=== PATIENT | female | born 1955 | race Caucasian/White ===

== ENCOUNTER 2021-02-28 10:34 | Emergency (ER) | payer MEDICARE, OTHER ==
[~2021-02-28] VITALS: Ht 160 cm; Wt 73.5 kg
[2021-02-28] MEDS ORDERED: SODIUM CHLORIDE 0.9% 1,000 ML IVB ONE (11:00)
[2021-02-28 11:17] LABS: Basophils # (auto) 0 10 ^3/uL (0-0.2); Basophils % (auto) 0.4 % (0.0-2.0); Eosinophils # (auto) 0.1 10 ^3/uL (0-0.8); Eosinophils % (auto) 2.1 % (0.0-7.0); Hemoglobin 12.5 g/dL (12.2-16.2); Lymphocytes # (auto) 1.8 10 ^3/uL (0.4-5.4); Lymphocytes % (auto) 32.9 % (10.0-50.0); Mean Corpuscular Hemoglobin 32.1 pg (28.0-32.0); Mean Corpuscular Hgb Conc. 34.7 g/dL (32.0-36.0); Mean Corpuscular Volume 92.4 fL (80.0-100.0); Monocytes # (auto) 0.6 10 ^3/uL (0-1.3); Monocytes % (auto) 11.7 % (0.0-12.0); Neutrophils # (auto) 2.8 10 ^3/uL (1.6-8.6); Neutrophils % (auto) 52.9 % (37.0-80.0); Nucleated Red Blood Cells % 0.1 %; Platelet Count (auto) 215 10^3/uL (140-450); Red Cell Distribution Width 15.5 % (11.8-14.3); White Blood Cell 5.4 10^3/uL (4.4-10.8)
[2021-02-28 11:33] LABS: Albumin 4.1 g/dL (3.4-5.0); Calcium 9.9 mg/dL (8.5-10.1); Potassium 4.3 mmol/L (3.5-5.1)
[2021-02-28 11:36] LABS: Bilirubin, Total 0.4 mg/dL (0.2-1.0); Total Protein 7.8 g/dL (6.4-8.2)
[2021-02-28 14:18] VITALS: BP 113/81
== END 2021-02-28 14:19 | disposition home or self-care (01) ==
LOC: ER 10:34
DX: R19.7 Diarrhea, unspecified (principal); R11.2 Nausea with vomiting, unspecified; I10 Essential (primary) hypertension; Z90.710 Acquired absence of both cervix and uterus
CPT/HCPCS: 36415; 80053; 83690; 85025; 85049; 99283; J7030

== ENCOUNTER 2023-01-28 15:41 | Inpatient (IN) | payer MEDICARE ==
[~2023-01-28] VITALS: Ht 154.9 cm; Wt 70.9 kg
[2023-01-28] MEDS ORDERED: SODIUM CHLORIDE 0.9% 1,000 ML IVB ONE (16:15)
[2023-01-28 16:17] LABS: Basophils # (auto) 0 10 ^3/uL (0-0.2); Basophils % (auto) 0.3 % (0.0-2.0); Eosinophils # (auto) 0.1 10 ^3/uL (0-0.8); Eosinophils % (auto) 1.5 % (0.0-7.0); Hematocrit 31.9 % (36.0-46.0); Hemoglobin 10.8 g/dL (12.2-16.2); Lymphocytes # (auto) 0.9 10 ^3/uL (0.4-5.4); Lymphocytes % (auto) 16.1 % (10.0-50.0); Mean Corpuscular Hemoglobin 31.5 pg (28.0-32.0); Mean Corpuscular Hgb Conc. 33.9 g/dL (32.0-36.0); Monocytes # (auto) 0.5 10 ^3/uL (0-1.3); Monocytes % (auto) 9.3 % (0.0-12.0); Neutrophils # (auto) 4.2 10 ^3/uL (1.6-8.6); Neutrophils % (auto) 72.8 % (37.0-80.0); Red Blood Cells 3.42 10^6/uL (4.0-5.20); Red Cell Distribution Width 14.7 % (11.8-14.3); White Blood Cell 5.7 10^3/uL (4.4-10.8)
[2023-01-28 16:35] LABS: Albumin 3.3 g/dL (3.4-5.0); Calcium 7.7 mg/dL (8.5-10.1); Magnesium 1.9 mg/dL (1.6-2.6)
[2023-01-28 16:37] LABS: BUN/Creatinine Ratio 17.2 (10.0-20.0); Bilirubin, Total 0.2 mg/dL (0.2-1.0); Total Protein 5.4 g/dL (6.4-8.2)
[2023-01-28 16:51] LABS: INR 0.99 (0.9-1.15); Partial Thromboplastin Time 23.6 sec (24.6-33.4)
[2023-01-28] MEDS ORDERED: THIAMINE 100mg/ml INJ (200mg/2ml VIAL) IV ONE (17:45)
[2023-01-28] MEDS ORDERED: FOLIC ACID 1 MG in D5W 5% 50 ML INJ ONE (17:45)
[2023-01-28] MEDS ORDERED: D5W/SOD CHL 0.45%/KCL 40MEQ 1,000 ML IV ONE (17:45)
[2023-01-28 19:39] LABS: Urine Bacteria NONE SEEN /hpf (None Seen); Urine Blood Negative /uL (Negative); Urine Hyaline Cast FEW /lpf (0 - 2); Urine Specific Gravity 1.012 (1.001-1.035); Urine WBC 2 /hpf (0 - 5)
[2023-01-28] MEDS ORDERED: HYDROcodone-ACET 5/325MG TAB PO PRN (21:00)
[2023-01-28] MEDS ORDERED: NITROGLYCERIN 0.4 MG SL TAB SL PRN (21:00)
[2023-01-28] MEDS ORDERED: ACETAMINOPHEN 325 MG TAB PO PRN (21:00)
[2023-01-28] MEDS ORDERED: ONDANSETRON HCL 4 MG/2 ML VIAL IV PRN (21:00)
[2023-01-28] MEDS ORDERED: MORPHINE SULFATE INJ 2 MG/ml SYRG IV PRN (21:00)
[2023-01-28] MEDS: ATORVASTATIN 20 MG TAB PO SCH (22:11)
[2023-01-29 00:06] VITALS: BP 114/62
[2023-01-29 00:20] VITALS: BP 114/62
[2023-01-29] MEDS ORDERED: ACYC200C22 PO (00:32)
[2023-01-29] MEDS ORDERED: LISI20TA60 PO (00:32)
[2023-01-29] MEDS ORDERED: ESCI1TAB36 PO (00:40)
[2023-01-29] MEDS ORDERED: POM (00:40)
[2023-01-29 05:00] VITALS: BP 120/57
[2023-01-29 06:01] LABS: BUN/Creatinine Ratio 15.7 (10.0-20.0); Calcium 7.9 mg/dL (8.5-10.1); Potassium 4.2 mmol/L (3.5-5.1)
[2023-01-29 09:05] VITALS: BP 114/54
[2023-01-29] MEDS: ASPirin 81 mg TAB PO SCH (09:56)
[2023-01-29] MEDS: PANTOPRAZOLE 40 MG TAB PO SCH (09:57)
[2023-01-29] MEDS: ENOXAPARIN SOD 40 MG/0.4 ML SYRINGE SC SCH (09:57)
[2023-01-29] MEDS: LISINOPRIL 10 MG TAB PO SCH (09:57)
[2023-01-29] MEDS ORDERED: FOLIC ACID 1 MG, MULTIPLE VITAMIN 10 ML, MAGNESIUM SULF SDV 50% 8 MEQ, THIAMINE INJ 100... INJ SCH ×5 (12:00)
[2023-01-29 12:31] VITALS: BP 116/61
[2023-01-29 16:32] VITALS: BP 132/66
[2023-01-29] MEDS: ATORVASTATIN 20 MG TAB PO SCH (22:04)
[2023-01-30 00:14] VITALS: BP 131/61
[2023-01-30 05:17] VITALS: BP 105/64
[2023-01-30 09:05] VITALS: BP 118/70
[2023-01-30] MEDS: ASPirin 81 mg TAB PO SCH (09:40)
[2023-01-30] MEDS: ENOXAPARIN SOD 40 MG/0.4 ML SYRINGE SC SCH (09:40)
[2023-01-30] MEDS: PANTOPRAZOLE 40 MG TAB PO SCH (09:41)
[2023-01-30] MEDS: LISINOPRIL 10 MG TAB PO SCH (09:52)
[2023-01-30] MEDS ORDERED: FOLI-119 PO (10:11)
[2023-01-30] MEDS ORDERED: THIA100T5 PO (10:11)
[2023-01-30 12:22] VITALS: BP 123/67
[2023-01-30 13:06] VITALS: BP 123/67
== END 2023-01-30 14:00 | disposition home or self-care (01) | DRG 312 ==
LOC: ER 15:41 → EDBD 15:41 → TELE 20:52 → TELE-WESTW 22:54
PROVIDERS: ADMIT Nurse Practitioner; ATTEND Family Medicine
DX: R55 Syncope and collapse (principal); C90.00 Multiple myeloma not having achieved remission; E87.6 Hypokalemia; E78.00 Pure hypercholesterolemia, unspecified; Y90.9 Presence of alcohol in blood, level not specified; I10 Essential (primary) hypertension; F10.20 Alcohol dependence, uncomplicated; Z82.49 Family history of ischemic heart disease and other diseases of the circulatory system; Z85.3 Personal history of malignant neoplasm of breast; Z90.13 Acquired absence of bilateral breasts and nipples; Z80.9 Family history of malignant neoplasm, unspecified
CPT/HCPCS: 36415; 70450; 71045; 72125; 80048; 80053; 80320; 81001; 82962; 83735; 83880; 84443; 84484; 85025; 85379; 85610; 85730; 93005; 93306; 93886; 96361; 96365; 96375; G0378; J7060

== ENCOUNTER 2023-06-18 12:59 | Emergency (ER) | payer MEDICARE ==
[~2023-06-18] VITALS: Ht 154.9 cm; Wt 63.6 kg
[2023-06-18 12:59] VITALS: BP 117/61; RESP 18; O2SAT 96
[~2023-06-18 12:59] MED LIST: ACYC200C22 PO; ESCI1TAB36 PO; FOLI-119 PO; LISI20TA60 PO; POM; THIA100T5 PO
[2023-06-18 13:07] VITALS: PULSE 73
[2023-06-18 13:30] LABS: Basophils # (auto) 0 10 ^3/uL (0-0.2); Basophils % (auto) 0.2 % (0.0-2.0); Eosinophils # (auto) 0 10 ^3/uL (0-0.8); Eosinophils % (auto) 0.3 % (0.0-7.0); Hematocrit 32.5 % (36.0-46.0); Hemoglobin 10.8 g/dL (12.2-16.2); Lymphocytes # (auto) 0.7 10 ^3/uL (0.4-5.4); Lymphocytes % (auto) 5.6 % (10.0-50.0); Mean Corpuscular Hemoglobin 31.1 pg (28.0-32.0); Mean Corpuscular Hgb Conc. 33.3 g/dL (32.0-36.0); Mean Corpuscular Volume 93.3 fL (80.0-100.0); Monocytes # (auto) 1.7 10 ^3/uL (0-1.3); Monocytes % (auto) 13.8 % (0.0-12.0); Neutrophils # (auto) 9.8 10 ^3/uL (1.6-8.6); Neutrophils % (auto) 80.1 % (37.0-80.0); Red Blood Cells 3.49 10^6/uL (4.0-5.20); Red Cell Distribution Width 15.4 % (11.8-14.3); White Blood Cell 12.3 10^3/uL (4.4-10.8)
[2023-06-18 13:46] LABS: Alanine Aminotransferase 19 U/L (7-40); Albumin 4.4 g/dL (3.2-4.8); Alkaline Phosphatase 77 U/L (46-116); Anion Gap 8 (5-15); Aspartate Aminotransferase < 8 U/L (13-40); Blood Urea Nitrogen 15 mg/dL (9-23); Calcium 8.9 mg/dL (8.7-10.4); Carbon Dioxide 27 mmol/L (20-30); Chloride 96 mmol/L (98-107); Glucose 154 mg/dL (74-106); Potassium 3.6 mmol/L (3.5-5.1); Sodium 131 mmol/L (136-145)
[2023-06-18 13:47] LABS: Bilirubin, Total 0.8 mg/dL (0.2-1.0); Total Protein 6.1 g/dL (5.7-8.2)
== END 2023-06-18 17:46 | disposition left against medical advice (07) ==
LOC: ER 12:59
DX: R53.1 Weakness (principal); R11.2 Nausea with vomiting, unspecified; M54.50 Low back pain, unspecified; Z53.21 Procedure and treatment not carried out due to patient leaving prior to being seen by health care provider
CPT/HCPCS: 36415; 71045; 80053; 84484; 85025; 93005